=== PATIENT | female | born 1990 | race Caucasian/White ===

== ENCOUNTER 2018-11-28 01:31 | Emergency (ER) | payer OTHER ==
[~2018-11-28] VITALS: Ht 170.2 cm; Wt 90.9 kg
[2018-11-28] MEDS ORDERED: birth control PO (01:45)
[2018-11-28 02:04] LABS: BASO % 0.2 % (0.0-1.0); EOS # 0.2 10^3/uL (0.0-0.50); EOS % 1.5 % (0.0-3.0); HEMATOCRIT 36.6 % (36.0-47.0); HEMOGLOBIN 12.5 g/dl (12.0-15.5); LYMPH # 2.3 10^3/uL (1.5-6.5); LYMPH % 17.4 % (24.0-44.0); MEAN CORPUSCULAR HEMOGLOBIN 28.7 pg (27.0-33.0); MEAN CORPUSCULAR HGB CONC 34.2 g/dl (32.0-36.5); MEAN CORPUSCULAR VOLUME 84.1 fl (80.0-96.0); MONO # 0.5 10^3/uL (0.0-0.8); MONO % 3.5 % (0.0-5.0); PLATELET COUNT, AUTOMATED 324 10^3/uL (150-450); RED BLOOD COUNT 4.35 10^6/uL (4.00-5.40)
[2018-11-28 02:24] LABS: HCG, SERUM QUALITATIVE NEGATIVE (NEGATIVE)
[2018-11-28] MEDS ORDERED: MORPHINE 4 MG/ML 1ML VIAL/SYRINGE (J2270) IV PRN (02:30)
[2018-11-28] MEDS ORDERED: ONDANSETRON 4MG/2ML VIAL (J2405) IV ONE (02:30)
[2018-11-28 02:33] LABS: ALBUMIN 3.3 GM/DL (3.2-5.2); ALT/SGPT 31 U/L (12-78); BILIRUBIN,DIRECT 0.1 MG/DL (0.0-0.2); BILIRUBIN,TOTAL 0.4 MG/DL (0.2-1.0); BLOOD UREA NITROGEN 7 MG/DL (7-18); CALCIUM LEVEL 8.9 MG/DL (8.5-10.1); CARBON DIOXIDE LEVEL 26 MEQ/L (21-32); CHLORIDE LEVEL 104 MEQ/L (98-107); GLOMERULAR FILTRATION RATE > 60.0 (>60); GLUCOSE, FASTING 142 MG/DL (70-100); LIPASE 84 U/L (73-393); POTASSIUM SERUM 3.7 MEQ/L (3.5-5.1); SODIUM LEVEL 140 MEQ/L (136-145); TOTAL PROTEIN 7.3 GM/DL (6.4-8.2)
[2018-11-28] MEDS ORDERED: NS 1,000 ML IV ONE (02:45)
[2018-11-28] MEDS ORDERED: ISOVUE-370 76% 100ML VIAL (Q9967) As Ordered ONE (02:52)
--- NOTE | 2018-11-28 03:34 | REPVR ---
EXAM: CT Abdomen and Pelvis With Contrast EXAM DATE/TIME: 11/28/2018 2:59 AM CLINICAL HISTORY: 28 years old, female; Pain; Abdominal pain; Additional info: Epigastric pain TECHNIQUE: Axial computed tomography images of the abdomen and pelvis with intravenous contrast. All CT scans at this facility use at least one of these dose optimization techniques: automated exposure control; mA and/or kV adjustment per patient size (includes targeted exams where dose is matched to clinical indication); or iterative reconstruction. Coronal and sagittal reformatted images were created and reviewed. CONTRAST: 100 ml of iso 370 administered intravenously. COMPARISON: No relevant prior studies available. FINDINGS: Lower thorax: Minimal bibasilar atelectasis. ABDOMEN: Liver: Normal. No mass. Gallbladder and bile ducts: Slight pericholecystic induration with no stones by CT. Pancreas: Normal. No ductal dilation. Spleen: Normal. No splenomegaly. Adrenals: Normal. No mass. Kidneys and ureters: Normal. No hydronephrosis. Stomach and bowel: Normal. No obstruction. No mucosal thickening. Appendix: A normal appendix is seen. PELVIS: Bladder: Unremarkable as visualized. Reproductive: Right ovarian cyst/follicle measuring 2.2 cm. Left ovarian cyst measuring 3.1 x 3.0 x 2.4 cm. ABDOMEN and PELVIS: Intraperitoneal space: Normal. No free air. No significant fluid collection. Bones/joints: Bilateral spondylolysis of L5. Soft tissues: Unremarkable. Vasculature: Normal. No abdominal aortic aneurysm. Lymph nodes: Normal. No enlarged lymph nodes. IMPRESSION: 1. Slight pericholecystic induration with no stones by CT. Ultrasound may be of benefit for further evaluation. 2. Bilateral spondylolysis of L5. 3. Right ovarian cyst/follicle measuring 2.2 cm. There is a left ovarian cyst measuring 3.1 x 3.0 x 2.4 cm. Electronically signed by: Kennedy Beasley On 11/28/2018 03:34:12 AM
--- NOTE | 2018-11-28 04:26 | REPVR ---
EXAM: US Abdomen Limited, Right Upper Quadrant EXAM DATE/TIME: 11/28/2018 4:07 AM CLINICAL HISTORY: 28 years old, female; Pain; Abdominal pain; Epigastric; Additional info: Epigastric pain, pericholey fluid on CT TECHNIQUE: Real-time ultrasound of the abdomen with image documentation. Examination was focused on the right upper quadrant. COMPARISON: CT ABD/PEL W/IV CONTRAST ONLY 11/28/2018 2:44 AM FINDINGS: Liver: The liver demonstrates no focal defects. Gallbladder: The gallbladder demonstrates no stones and no wall thickening measuring 3 mm. No pericholecystic fluid. Common bile duct: The CBD measures 4 mm Pancreas: The pancreas is normal. Right kidney: The right kidney is normal and measures 10.7 cm. IMPRESSION: Negative right upper quadrant sonogram. No gallbladder wall thickening or pericholecystic fluid. Electronically signed by: Kennedy Beasley On 11/28/2018 04:25:51 AM
[2018-11-28 05:00] VITALS: BP 116/64
[2018-11-28] MEDS ORDERED: HYOS1TAB PO (05:13)
--- NOTE | 2018-11-28 15:20 | ED PDOC ---
Post-Departure Follow-Up ft urszula pat faxed formal report of ct abd/p for fu Nuvia Price MD Nov 28, 2018 15:19
[2018-11-28] MEDS ORDERED: PRED20TA PO (18:33)
[2018-11-28] MEDS ORDERED: PEPC1TAB5 PO (18:33)
[2018-11-28] MEDS ORDERED: BENA25CA4 PO (18:33)
== END 2018-11-28 05:22 | disposition home or self-care (01) ==
LOC: M ED 01:31
DX: K80.20 Calculus of gallbladder without cholecystitis without obstruction (principal); M43.06 Spondylolysis, lumbar region; N83.291 Other ovarian cyst, right side; N83.292 Other ovarian cyst, left side; Z79.3 Long term (current) use of hormonal contraceptives; Z79.899 Other long term (current) drug therapy
CPT/HCPCS: 36415; 74177; 76705; 80048; 80076; 81001; 83690; 84703; 85025; 87086; 96361; 96374; 96375; 99284; J2270; J2405; Q9967

== ENCOUNTER 2018-11-28 15:19 | Emergency (ER) | payer OTHER ==
[~2018-11-28] VITALS: Ht 170.2 cm; Wt 91.4 kg
[~2018-11-28 15:19] MED LIST: HYOS1TAB PO; birth control PO
[2018-11-28] MEDS ORDERED: predniSONE 20 MG TAB PO ONE (18:00)
[2018-11-28] MEDS ORDERED: FAMOTIDINE 20 MG TAB PO ONE (18:00)
[2018-11-28] MEDS ORDERED: diphenhydrAMINE 50 MG CAP PO ONE (18:00)
[2018-11-28] MEDS ORDERED: PRED20TA PO (18:33)
[2018-11-28] MEDS ORDERED: BENA25CA4 PO (18:33)
[2018-11-28] MEDS ORDERED: PEPC1TAB5 PO (18:33)
[2018-11-28 18:52] VITALS: BP 117/71
== END 2018-11-28 19:00 | disposition home or self-care (01) ==
LOC: M ED 15:19
DX: T78.40XA Allergy, unspecified, initial encounter (principal); Y92.9 Unspecified place or not applicable; Y93.9 Activity, unspecified; Z79.3 Long term (current) use of hormonal contraceptives

== ENCOUNTER 2019-04-21 06:00 | Day surgery (SDC) | payer OTHER ==
[~2019-04-21] VITALS: Ht 170.2 cm; Wt 88.5 kg
[~2019-04-21 06:00] MED LIST changes: +BENA25CA4 PO; +PEPC1TAB5 PO; +PRED20TA PO
[2019-04-21 06:40] LABS: HEMATOCRIT 39.1 % (36.0-47.0); HEMOGLOBIN 13.2 g/dl (12.0-15.5); MEAN CORPUSCULAR HEMOGLOBIN 29.9 pg (27.0-33.0); MEAN CORPUSCULAR HGB CONC 33.8 g/dl (32.0-36.5); MEAN CORPUSCULAR VOLUME 88.5 fl (80.0-96.0); PLATELET COUNT, AUTOMATED 329 10^3/uL (150-450); RED BLOOD COUNT 4.42 10^6/uL (4.00-5.40); WHITE BLOOD COUNT 8.1 10^3/uL (4.0-10.0)
[2019-04-21] MEDS ORDERED: ACETAMINOPHEN 650 MG SUPP PR ONE (07:00)
[2019-04-21] MEDS ORDERED: LR 1,000 ML IV ONE (07:00)
[2019-04-21] MEDS ORDERED: BUPIVACAINE HCL 0.5% 10 ML VIAL As Ordered ONE (07:11)
[2019-04-21] MEDS ORDERED: ACETAMINOPHEN 650 MG SUPP As Ordered ONE (07:11)
[2019-04-21 07:14] LABS: BLOOD UREA NITROGEN 7 MG/DL (7-18); CALCIUM LEVEL 9.2 MG/DL (8.5-10.1); CARBON DIOXIDE LEVEL 28 MEQ/L (21-32); CHLORIDE LEVEL 108 MEQ/L (98-107); CREATININE FOR GFR 0.75 MG/DL (0.55-1.30); GLOMERULAR FILTRATION RATE > 60.0 (>60); GLUCOSE, FASTING 102 MG/DL (70-100); HCG, SERUM QUANTITATIVE < 1.0 MIU/ML; POTASSIUM SERUM 4.3 MEQ/L (3.5-5.1); SODIUM LEVEL 141 MEQ/L (136-145)
[2019-04-21] MEDS ORDERED: ONDANSETRON 4MG/2ML VIAL (J2405) As Ordered ONE (07:19)
[2019-04-21] MEDS ORDERED: ROCURONIUM BROMIDE 50 MG/5 ML VIAL As Ordered ONE (07:19)
[2019-04-21] MEDS ORDERED: PROPOFOL 200 MG/20 ML VIAL As Ordered ONE (07:19)
[2019-04-21] MEDS ORDERED: MIDAZOLAM INJ 2 MG/2 ML VIAL (J2250) As Ordered ONE (07:19)
[2019-04-21] MEDS ORDERED: LIDOCAINE 2% INJ 100 MG/5 ML SDV (FOR ANES.) As Ordered ONE (07:19)
[2019-04-21] MEDS ORDERED: fentaNYL 100 MCG/2 ML INJECTION (J3010) As Ordered ONE ×2 (07:19→08:07)
[2019-04-21] MEDS ORDERED: dexameTHASONE 4 MG/ML 1ML VIAL (J1100) As Ordered ONE (07:19)
[2019-04-21] MEDS ORDERED: SCOPOLAMINE 1MG TRANSDERMAL PATCH TOP ONE (07:30)
[2019-04-21] MEDS ORDERED: SUGAMMADEX SODIUM 500 MG/5 ML VIAL (BRIDION) As Ordered ONE (08:20)
[2019-04-21] MEDS ORDERED: PERCOCET 5MG/325MG TAB PO PRN (09:15)
[2019-04-21] MEDS ORDERED: LR 1,000 ML IV SCH (09:15)
[2019-04-21] MEDS ORDERED: ONDANSETRON 4MG/2ML VIAL (J2405) IV PRN (09:15)
[2019-04-21] MEDS ORDERED: KETOROLAC 30 MG/ML VIAL (J1885) IM PRN (09:15)
[2019-04-21] MEDS ORDERED: fentaNYL 100 MCG/2 ML INJECTION (J3010) IV PRN (09:15)
[2019-04-21 10:30] VITALS: BP 127/89
--- NOTE | 2019-04-24 08:31 | RO ---
DATE OF PROCEDURE: 04/21/2019 PREOPERATIVE DIAGNOSIS: Satisfied parity. POSTOPERATIVE DIAGNOSIS: Satisfied parity. OPERATION PROPOSED: Laparoscopic bilateral salpingectomy. OPERATION PERFORMED: Laparoscopic bilateral salpingectomy. SURGEON: Erick Lee MD COUNTY HISTORIAN: Redd for extraction and retraction and visualization. ANESTHESIA: General plus local anesthetic for intraperitoneal procedures. ESTIMATED BLOOD LOSS: Less than 25 mL. After adequate time-out, prepped and draped in lithotomy position, Llanes catheter in the bladder draining clear urine. Acetaminophen suppository 1300 mg per rectum. Weighted speculum in vagina. A single-tooth tenaculum on the anterior lip of the cervix. Large multiparous cervix, grade II cervical prolapse. Uterine elevator was placed in the endocervical canal. Reprepping and draping, small subumbilical incision was made. Veress needle was applied. 4.6 liters of CO2 to flow rate of 4 to a pressure 15. Direct entry into the abdomen. No evidence of perforation, hemorrhage or bleeding. Panoramic review right upper quadrant was normal. Gallbladder was normal. Right lower quadrant was normal. Left lower quadrant was normal. Adhesions over the anterior aspect of the bladder and uterus from previous section. The left upper quadrant was normal. Spleen was normal. Cul-de-sac was clean. anterior cul de sac was clean. The tubes were visualized to the fimbriated end. Both ovaries appeared to have multiple cysts on them, some were clear fluid, some were yellowish fluid but there was no evidence of excrescences and they were completely mobile. With a 5 mm port on each side, we then by LigaSure removed the left tube and was sent to pathology under separate cover. We then removed the right tube, it was sent to pathology under separate cover. There was no evidence of bleeding. Hemostasis was secured. Our plan of management is to redo the ultrasound in eight weeks' time and do tumor markers after confirmation that the tubes did not have any pathology in them. With instrument and pad count correct, the abdomen was deflated to 4 mm pressure. The two 5 mm ports were removed. The mainstem port was removed. Subcuticular stitches Marcaine 0.25% to all three sites. Steri-Strips. Llanes catheter was removed. Uterine elevator and tenaculum removed. The patient was sent to recovery in good condition. [facility]
== END 2019-04-21 10:52 | disposition home or self-care (01) ==
LOC: M SDC 06:00
PROVIDERS: ATTEND Obstetrics & Gynecology
DX: Z30.2 Encounter for sterilization (principal); Z88.5 Allergy status to narcotic agent
CPT/HCPCS: 36415; 58661; 80048; 84702; 85027; 88302; J1100; J2250; J2405; J3010